=== PATIENT | female | born 1985 | race African-American/Black ===

== ENCOUNTER 2017-06-11 17:46 | Emergency (ER) | payer OTHER ==
[~2017-06-11] VITALS: Ht 154.9 cm; Wt 90.7 kg
[2017-06-11] MEDS ORDERED: HYDROcodone-ACET 10/325MG TAB PO ONE (19:15)
[2017-06-11] MEDS ORDERED: MANNITOL 20% SOLN 100 gm/500ml 250 ML IV ONE (19:45)
[2017-06-11] MEDS ORDERED: DEXAMETHASONE SOD PHOS 10MG/1ML VIAL INJ IV ONE (19:45)
[2017-06-11 19:53] LABS: Basophils # (auto) 0 uL; Basophils % (auto) 0.8 % (0.0-2.0); Eosinophils # (auto) 0.1 uL; Eosinophils % (auto) 2.3 % (0.0-7.0); Hematocrit 38.2 % (36.0-46.0); Hemoglobin 12.6 g/dL (12.2-16.2); Lymphocytes # (auto) 1.8 uL; Lymphocytes % (auto) 40.8 % (10.0-50.0); Mean Corpuscular Hemoglobin 25.6 pg (28.0-32.0); Mean Corpuscular Hgb Conc. 32.9 g/dL (32.0-36.0); Mean Corpuscular Volume 77.9 fL (80.0-100.0); Mean Platelet Volume 7.3 fL (6.9-10.8); Monocytes # (auto) 0.7 uL; Monocytes % (auto) 17.1 % (0.0-12.0); Neutrophils # (auto) 1.7 uL; Platelet Count (auto) 256 10^3/uL (140-450); White Blood Cell 4.4 10^3/uL (4.4-10.8)
[2017-06-11 19:59] LABS: INR 1.09 (0.9-1.15); Partial Thromboplastin Time 30.1 sec (22.64-33.71); Prothrombin Time 11.9 sec (9.37-12.3)
[2017-06-11 20:08] LABS: Albumin 3.7 g/dL (3.4-5.0); BUN/Creatinine Ratio 10.9; Calcium 8.6 mg/dL (8.5-10.1)
[2017-06-11 20:10] LABS: Bilirubin, Total 0.3 mg/dL (0.2-1.0); Total Protein 7.8 g/dL (6.4-8.2)
[2017-06-11 20:30] LABS: Urine Bilirubin Negative (Negative); Urine Blood Negative /uL (Negative); Urine Color Yellow (Yellow); Urine Glucose Normal (Normal); Urine Ketone Negative (Negative); Urine Mucus FEW (None Seen); Urine Nitrite Negative (Negative); Urine RBC 1 /hpf (0 - 4); Urine Squamous Epithelial Cell FEW /hpf (<5); Urine pH 7.5 (5.0-8.0)
[2017-06-11 20:49] LABS: Microcytosis Slight; Platelet Estimate Adequate
[2017-06-11] MEDS ORDERED: SODIUM CHL 3% 500 ML IV ONE (21:30)
[2017-06-11 22:43] VITALS: BP 113/71
== END 2017-06-11 23:35 | disposition short-term general hospital (02) ==
LOC: ER 17:46
DX: I62.9 Nontraumatic intracranial hemorrhage, unspecified (principal); R00.1 Bradycardia, unspecified; G43.909 Migraine, unspecified, not intractable, without status migrainosus; R53.1 Weakness
CPT/HCPCS: 36415; 51702; 70450; 71010; 80053; 80307; 81001; 85025; 85610; 85730; 93005; 96361; 96365; 96375; 99285; J1100; J7030

== ENCOUNTER 2018-12-09 16:43 | Emergency (ER) | payer MEDICAID ==
[~2018-12-09] VITALS: Ht 154.9 cm; Wt 56.7 kg
[~2018-12-09 16:43] MED LIST: ASPI81CH43 GT; BENZ100C97 PO; DIGO0.1262 PO; METO25TA62 PO; ONDA4TAB5 PO
[2018-12-09 18:18] LABS: Basophils # (auto) 0 uL; Basophils % (auto) 0.5 % (0.0-2.0); Eosinophils # (auto) 0.1 uL; Hematocrit 39.5 % (36.0-46.0); Hemoglobin 13.4 g/dL (12.2-16.2); Lymphocytes # (auto) 0.5 uL; Lymphocytes % (auto) 22.9 % (10.0-50.0); Mean Corpuscular Hemoglobin 31.2 pg (28.0-32.0); Monocytes # (auto) 0.2 uL; Monocytes % (auto) 12.2 % (0.0-12.0); Neutrophils # (auto) 1.2 uL; Neutrophils % (auto) 59.4 % (37.0-80.0); Nucleated Red Blood Cells % 0.1 %; Platelet Count (auto) 310 10^3/uL (140-450); Red Cell Distribution Width 12.8 % (11.8-14.3)
[2018-12-09 18:32] LABS: Albumin 3.8 g/dL (3.4-5.0); Calcium 9.4 mg/dL (8.5-10.1); Potassium 3.8 mmol/L (3.5-5.1)
[2018-12-09 18:35] LABS: Bilirubin, Total 0.3 mg/dL (0.2-1.0); Total Protein 8.6 g/dL (6.4-8.2)
[2018-12-09] MEDS ORDERED: ONDANSETRON HCL 4 MG/2 ML VIAL IV ONE (22:45)
[2018-12-09] MEDS ORDERED: MORPHINE SULFATE 4 MG/ML SYR/VIAL IV ONE (22:45)
[2018-12-09] MEDS ORDERED: NEOMYCIN-BACITRACIN-POLYM UNITDOSE PKG TOP OINT TOP ONE (23:00)
[2018-12-09 23:41] VITALS: BP 100/64
== END 2018-12-09 23:19 | disposition home or self-care (01) ==
LOC: ER 16:46
DX: K94.23 Gastrostomy malfunction (principal); R10.9 Unspecified abdominal pain; K72.90 Hepatic failure, unspecified without coma; D72.819 Decreased white blood cell count, unspecified
CPT/HCPCS: 36415; 80053; 85025; 96374; 96375; 99283; J2270; J2405

== ENCOUNTER 2019-10-13 01:40 | Emergency (ER) | payer MEDICAID ==
[~2019-10-13] VITALS: Ht 154.9 cm; Wt 57.6 kg
[~2019-10-13 01:40] MED LIST changes: +DIGO0.12 PO; -DIGO0.1262 PO; -METO25TA62 PO; +METO25TA93 PO; +ONDA-144 PO; -ONDA4TAB5 PO
[2019-10-13 03:01] LABS: Urine Bacteria FEW /hpf (None Seen); Urine Blood Negative /uL (Negative); Urine Mucus MODERATE (None Seen); Urine Specific Gravity 1.034 (1.001-1.035); Urine WBC 3 /hpf (0 - 5)
[2019-10-13 03:11] LABS: Basophils # (auto) 0 uL; Eosinophils # (auto) 0.1 uL; Eosinophils % (auto) 2.3 % (0.0-7.0); Hematocrit 36.9 % (36.0-46.0); Hemoglobin 12.3 g/dL (12.2-16.2); Lymphocytes # (auto) 1.2 uL; Mean Corpuscular Hemoglobin 29.6 pg (28.0-32.0); Mean Corpuscular Hgb Conc. 33.4 g/dL (32.0-36.0); Mean Corpuscular Volume 88.5 fL (80.0-100.0); Monocytes # (auto) 0.3 uL; Monocytes % (auto) 12.4 % (0.0-12.0); Neutrophils # (auto) 1.1 uL; Neutrophils % (auto) 39.3 % (37.0-80.0); Nucleated Red Blood Cells % 0.1 %; Platelet Count (auto) 232 10^3/uL (140-450); Red Blood Cells 4.17 10^6/uL (4.0-5.20); Red Cell Distribution Width 13.3 % (11.8-14.3); White Blood Cell 2.7 10^3/uL (4.4-10.8)
[2019-10-13 03:27] LABS: Albumin 3.4 g/dL (3.4-5.0); BUN/Creatinine Ratio 17.9; Calcium 8.2 mg/dL (8.5-10.1); Potassium 4.1 mmol/L (3.5-5.1)
[2019-10-13 03:29] LABS: Bilirubin, Total 0.1 mg/dL (0.2-1.0); Total Protein 6.8 g/dL (6.4-8.2)
[2019-10-13] MEDS ORDERED: MORPHINE SULFATE 4 MG/ML SYR/VIAL IV ONE (07:45)
[2019-10-13] MEDS ORDERED: ONDANSETRON HCL 4 MG/2 ML VIAL IV ONE (07:45)
[2019-10-13 09:14] VITALS: BP 93/57
== END 2019-10-13 09:35 | disposition home or self-care (01) ==
LOC: ER 01:41
DX: S33.5XXA Sprain of ligaments of lumbar spine, initial encounter (principal); Z86.73 Personal history of transient ischemic attack (TIA), and cerebral infarction without residual deficits; Z95.1 Presence of aortocoronary bypass graft; Z95.0 Presence of cardiac pacemaker; Z88.8 Allergy status to other drugs, medicaments and biological substances; Z79.82 Long term (current) use of aspirin; Z79.899 Other long term (current) drug therapy; X58.XXXA Exposure to other specified factors, initial encounter; Y93.89 Activity, other specified; Y92.89 Other specified places as the place of occurrence of the external cause; Y99.8 Other external cause status
CPT/HCPCS: 36415; 80053; 81001; 81025; 85025; 96374; 96375; 99283; J2270; J2405